=== PATIENT | female | born 1995 | race Caucasian/White ===

== ENCOUNTER 2016-07-03 17:21 | Emergency (ER) | payer BC ==
[~2016-07-03] VITALS: Ht 167.6 cm; Wt 104.1 kg
[~2016-07-03 17:21] MED LIST: BCPILLS PO; PRLSR20 PO
[2016-07-03 17:32] VITALS: TEMP 36.6; Ht 167.6 cm; Wt 104.1 kg
[2016-07-03] MEDS ORDERED: SODIUM CHLORIDE 0.9% 1000ML 1,000 ML IV STA (17:49)
[2016-07-03] MEDS ORDERED: ONDANSETRON INJ 2 MG/ML 2 ML VIAL IV STA (17:49)
[2016-07-03] MEDS ORDERED: PROM25TA16 PO (18:02)
[2016-07-03 18:07] LABS: BASO % 0.3 %; BASO ABS # 0.03 K/uL (0-0.2); COMPLETE YES; EOS % 2.2 %; HEMATOCRIT 41.2 % (37-47); IG% 0.3 %; LYMPH % 23.5 %; LYMPH ABS # 2.05 K/uL (1.2-3.4); MEAN CELL VOLUME 79.5 fL (80-100); MEAN CORPUSCULAR HEMOGLOBIN 26.8 pg (25-34); MEAN CORPUSCULAR HGB CONC 33.7 g/dl (32-36); MEAN PLATELET VOLUME 9.2 fL (7.4-10.4); MONO % 6.5 %; NEUT % 67.2 %; PLATELET COUNT 220 K/uL (130-400); RED BLOOD COUNT 5.18 M/uL (4.2-5.4); WHITE BLOOD COUNT 8.72 K/uL (4.8-10.8)
[2016-07-03 18:23] LABS: URINE APPEARANCE CLEAR (CLEAR); URINE BILIRUBIN NEG (NEG); URINE COLOR YELLOW; URINE NITRITE NEG (NEG); UROBILINOGEN NEG (NEG); ZZUR CULT IF INDIC CLEAN CATCH NO
[2016-07-03 18:25] LABS: ALT/SGPT 318 U/L (12-78); BLOOD UREA NITROGEN 5 mg/dl (7-18); BUN/CREATININE RATIO 6.7 (10-20); C-REACTIVE PROTEIN < 0.29 mg/dl (0-0.29); CALCIUM 8.7 mg/dl (8.5-10.1); CARBON DIOXIDE 27 mmol/L (21-32); CHLORIDE 109 mmol/L (98-107); CREATININE 0.78 mg/dl (0.60-1.20); GLUCOSE 82 mg/dl (70-99); POTASSIUM 4.1 mmol/L (3.5-5.1); SODIUM 142 mmol/L (136-145)
[2016-07-03 18:27] LABS: MANUAL MICROSCOPIC REQUIRED? NO; REVIEW REQ? YES
[2016-07-03 18:34] LABS: ALB/GLOB RATIO 1.1 (0.9-2); ALKALINE PHOSPHATASE 72 U/L (45-117); AST/SGOT 133 U/L (15-37)
--- NOTE | 2016-07-03 18:56 | DIAGNOSTIC IMAGING REPORT ---
KUB CLINICAL HISTORY: Nausea and vomiting. FINDINGS: 3 AP supine abdominal radiographs are correlated with abdominal CT dated 03/05/2013. There is a nonobstructed abdominal bowel gas pattern noting mild to moderate colonic fecal retention. No evidence of intraperitoneal free air is seen on these supine views. There is no radiographic evidence of nephrolithiasis. A calcified phlebolith is observed in the left hemipelvis. The bony structures appear intact. IMPRESSION: Nonobstructed abdominal bowel gas pattern noting mild to moderate colonic fecal retention. Electronically signed by: Yang Scott M.D. 07/03/2016 6:55 PM Dictated Date/Time: 07/03/2016 6:54 PM
--- NOTE | 2016-07-03 19:54 | DIAGNOSTIC IMAGING REPORT ---
ULTRASOUND RIGHT UPPER QUADRANT ABDOMEN CLINICAL HISTORY: Right upper quadrant abdominal pain. COMPARISON STUDY: Abdominal CT dated 03/05/2013. TECHNIQUE: Real-time, grayscale, and color flow sonography of the right upper quadrant of the abdomen was performed. Images are reviewed in the transverse and longitudinal planes. FINDINGS: Liver: The liver is normal in size and echotexture. There is no intrahepatic biliary ductal dilatation. The main portal vein is patent. Gallbladder: The gallbladder is normal in appearance. No gallstones are identified. There is no gallbladder wall thickening or pericholecystic fluid. A sonographic Ervin's sign is reportedly absent. The common bile duct measures up to 0.3 cm in diameter. Pancreas: Visualized portions of the pancreatic head and body are normal in appearance. The splenic vein is patent. Right kidney: Survey images of the right kidney demonstrate normal size and echotexture. There is no hydronephrosis. Spleen: Spleen is mildly enlarged measuring 14.3 cm in length. Spleen is homogeneous in echotexture. Ascites: None. IMPRESSION: 1. No acute sonographic abnormality is identified. No gallstones are seen. 2. Mild splenomegaly. Electronically signed by: Yang Scott M.D. 07/03/2016 7:52 PM Dictated Date/Time: 07/03/2016 7:51 PM
[2016-07-03] MEDS ORDERED: ONDANSETRON HOME PACK 4MG OD TAB PO ONE (20:30)
[2016-07-03] MEDS ORDERED: ONDA4TAB10 SL (20:38)
--- NOTE | 2016-07-03 20:39 | EMERGENCY ROOM VISIT NOTE ---
History First contact with patient: 17:38 Chief Complaint: GI ASSESSMENT Stated Complaint: VOMITING, LOOSE STOOLS, STOMACH PAIN Nursing Triage Summary: Patient states "I have been sick for about 2 weeks now. I have seen my doctor and have had blood work taken. They said that my LFTs were elevated. I have had nausea, vomiting, yellow diarrhea, body aches, fevers and fatigue." History of Present Illness The patient is a 21 year old female who presents to the Emergency Department by private vehicle for evaluation of her vomiting, loose stools, and abdominal pain. She reports that for the past 1.5 weeks, she has had diarrhea as well as associated nausea. She saw her primary care provider last week and had blood work performed. Her liver enzymes were elevated. She had a subsequent follow- up appointment for repeat blood work as well. She has costal cultures orders which she has not provided sample for at this point. She has ultrasound order this week as well. She had resolved her diarrhea, but describes green stools recently. She had vomiting and worsening pain which prompted her visit to the emergency department today. The patient rates her current discomfort as a 6/ 10. She denies any fevers, chills, headaches, chest pain, palpitations, pleuritic pain, hematemesis, hematochezia, melena, hematuria, or dysuria. Review of Systems A complete 10-point Review of Systems was discussed with the patient, with pertinent positives and negatives listed in the History of Present Illness. All remaining Review of Systems questions can be considered negative unless otherwise specified. Social History Smoking Status: Never Smoker Smokeless Tobacco Use: No Alcohol Use: none Drug Use: none Marital Status: single Housing Status: lives with family Current/Historical Medications Scheduled PRN Ondasetron Odt (Zofran Odt), 1 TAB SL Q6 PRN for Nausea or Vomiting Promethazine HCl (Promethazine HCl), 25 MG PO BID PRN for Nausea or Vomiting Allergies Coded Allergies: No Known Allergies (Unverified , 07/03/16) Physical Exam Vital Signs Date Time Temp Pulse Resp B/P Pulse Ox O2 Delivery O2 Flow Rate FiO2 07/03/16 20:45 83 18 117/73 97 Room Air 07/03/16 20:13 90 18 121/65 98 Room Air 07/03/16 19:10 84 18 125/74 98 Room Air 07/03/16 18:10 88 125/75 86 133/81 95 116/82 07/03/16 17:32 36.6 98 16 129/99 97 Room Air Pain Rating (0-10): 6 Physical Exam VITAL SIGNS - Vital signs and nursing notes were reviewed. GENERAL - 21-year-old female appearing her stated age who is in no acute distress. Communicates well with provider and answers questions appropriately. LUNGS - Chest wall symmetric without accessory muscle use, intercostals retractions, or central cyanosis. Normal vesicular breath sounds CTA B/L. No wheezes, rales, or rhonchi appreciated. CARDIAC - RRR with S1/S2. No murmur, rubs, or gallops appreciated. ABDOMEN - Abdominal contour female and without pulsations or visible masses. BS normoactive all four quadrants. No tenderness to palpation appreciated throughout. No guarding. No Rebound Tenderness. Negative Rovsing's. Negative Ervin's. No palpable masses, hepatosplenomegaly, or ascites noted. EXTREMITIES - No clubbing or peripheral cyanosis. No pretibial edema present. +3 /5 radial and dorsalis pedis pulses palpated throughout. PSYCH - A&Ox3 and cooperates fully with examiner. Pt is very pleasant and interacts well with examiner. Medical Decision & Procedures ER Provider Diagnostic Interpretation: Radiological imaging and reports were reviewed by myself. Radiologist's Interpretation as follows: ULTRASOUND RIGHT UPPER QUADRANT ABDOMEN CLINICAL HISTORY: Right upper quadrant abdominal pain. COMPARISON STUDY: Abdominal CT dated 03/05/2013. TECHNIQUE: Real-time, grayscale, and color flow sonography of the right upper quadrant of the abdomen was performed. Images are reviewed in the transverse and longitudinal planes. FINDINGS: Liver: The liver is normal in size and echotexture. There is no intrahepatic biliary ductal dilatation. The main portal vein is patent. Gallbladder: The gallbladder is normal in appearance. No gallstones are identified. There is no gallbladder wall thickening or pericholecystic fluid. A sonographic Ervin's sign is reportedly absent. The common bile duct measures up to 0.3 cm in diameter. Pancreas: Visualized portions of the pancreatic head and body are normal in appearance. The splenic vein is patent. Right kidney: Survey images of the right kidney demonstrate normal size and echotexture. There is no hydronephrosis. Spleen: Spleen is mildly enlarged measuring 14.3 cm in length. Spleen is homogeneous in echotexture. Ascites: None. IMPRESSION: 1. No acute sonographic abnormality is identified. No gallstones are seen. 2. Mild splenomegaly. KUB CLINICAL HISTORY: Nausea and vomiting. FINDINGS: 3 AP supine abdominal radiographs are correlated with abdominal CT dated 03/05/2013. There is a nonobstructed abdominal bowel gas pattern noting mild to moderate colonic fecal retention. No evidence of intraperitoneal free air is seen on these supine views. There is no radiographic evidence of nephrolithiasis. A calcified phlebolith is observed in the left hemipelvis. The bony structures appear intact. IMPRESSION: Nonobstructed abdominal bowel gas pattern noting mild to moderate colonic fecal retention. Laboratory Results 07/03/16 17:58 Red Blood Count 5.18, Mean Corpuscular Volume 79.5, Mean Corpuscular Hemoglobin 26.8, Mean Corpuscular Hemoglobin Concent 33.7, Mean Platelet Volume 9.2, Neutrophils (%) (Auto) 67.2, Lymphocytes (%) (Auto) 23.5, Monocytes (%) (Auto) 6.5, Eosinophils (%) (Auto) 2.2, Basophils (%) (Auto) 0.3, Neutrophils # (Auto) 5.85, Lymphocytes # (Auto) 2.05, Monocytes # (Auto) 0.57, Eosinophils # (Auto) 0.19, Basophils # (Auto) 0.03 07/03/16 17:58 Test 07/03/16 17:58 07/03/16 18:01 White Blood Count 8.72 K/uL (4.8-10.8) Red Blood Count 5.18 M/uL (4.2-5.4) Hemoglobin 13.9 g/dL (12.0-16.0) Hematocrit 41.2 % (37-47) Mean Corpuscular Volume 79.5 fL (80-100) Mean Corpuscular Hemoglobin 26.8 pg (25-34) Mean Corpuscular Hemoglobin Concent 33.7 g/dl (32-36) Platelet Count 220 K/uL (130-400) Mean Platelet Volume 9.2 fL (7.4-10.4) Neutrophils (%) (Auto) 67.2 % Lymphocytes (%) (Auto) 23.5 % Monocytes (%) (Auto) 6.5 % Eosinophils (%) (Auto) 2.2 % Basophils (%) (Auto) 0.3 % Neutrophils # (Auto) 5.85 K/uL (1.4-6.5) Lymphocytes # (Auto) 2.05 K/uL (1.2-3.4) Monocytes # (Auto) 0.57 K/uL (0.11-0.59) Eosinophils # (Auto) 0.19 K/uL (0-0.5) Basophils # (Auto) 0.03 K/uL (0-0.2) RDW Standard Deviation 37.8 fL (36.4-46.3) RDW Coefficient of Variation 13.1 % (11.5-14.5) Immature Granulocyte % (Auto) 0.3 % Immature Granulocyte # (Auto) 0.03 K/uL (0.00-0.02) Erythrocyte Sedimentation Rate 3 mm/hr (0-21) Anion Gap 6.0 mmol/L (3-11) Est Creatinine Clear Calc Drug Dose 139.0 ml/min Estimated GFR () 126.0 Estimated GFR (Non- 108.7 BUN/Creatinine Ratio 6.7 (10-20) Calcium Level 8.7 mg/dl (8.5-10.1) Magnesium Level 2.0 mg/dl (1.8-2.4) Total Bilirubin 0.8 mg/dl (0.2-1) Aspartate Amino Transf (AST/SGOT) 133 U/L (15-37) Alanine Aminotransferase (ALT/SGPT) 318 U/L (12-78) Alkaline Phosphatase 72 U/L (45-117) C-Reactive Protein < 0.29 mg/dl (0-0.29) Total Protein 7.0 gm/dl (6.4-8.2) Albumin 3.7 gm/dl (3.4-5.0) Globulin 3.3 gm/dl (2.5-4.0) Albumin/Globulin Ratio 1.1 (0.9-2) Lipase 150 U/L (73-393) Thyroid Stimulating Hormone (TSH) 2.230 uIu/ml (0.300-4.500) Monoscreen POS (NEG) Urine Color YELLOW Urine Appearance CLEAR (CLEAR) Urine pH 7.0 (4.5-7.5) Urine Specific [place] 1.000 (1.000-1.030) Urine Protein NEG (NEG) Urine Glucose (UA) NEG (NEG) Urine Ketones NEG (NEG) Urine Occult Blood 3+ (NEG) Urine Nitrite NEG (NEG) Urine Bilirubin NEG (NEG) Urine Urobilinogen NEG (NEG) Urine Leukocyte Esterase NEG (NEG) Urine WBC (Auto) 0 /hpf (0-5) Urine RBC (Auto) 0-4 /hpf (0-4) Urine Hyaline Casts (Auto) 0 /lpf (0-5) Urine Epithelial Cells (Auto) 10-20 /lpf (0-5) Urine Bacteria (Auto) NEG (NEG) Urine Test NEG (NEG) Medications Administered Medications (Trade) Dose Ordered Sig/Rob Route Start Time Stop Time Status Last Admin Dose Admin Sodium Chloride (Nss 1000ml) 1,000 ml @ 999 mls/hr Q1H1M STAT IV 07/03/16 17:49 07/03/16 18:49 DC 07/03/16 18:07 999 MLS/HR Ondansetron HCl (Zofran Inj) 4 mg NOW STAT IV 07/03/16 17:49 07/03/16 17:53 DC 07/03/16 18:07 4 MG Ondansetron HCl (ZOFRAN ODT 4MG Home Pack) 1 homepack UD ONCE PO 07/03/16 20:30 07/03/16 20:31 DC 07/03/16 20:44 1 HOMEPACK ED Course Patient was seen and evaluated by myself. Labs were drawn, saline lock in place. The patient was hydrated with a 1000 mL normal saline bolus. She received 4 mg Zofran intravenously for nausea. KUB and color ultrasound were obtained. Laboratory results demonstrate no acute leukocytosis, worrisome anemia, or bandemia. The patient has no significant electrolyte abnormalities. Liver enzymes were mildly elevated. ESR and CRP are negative. Urinalysis does not state infection. Urine was negative. Ultrasound of the spleen is ordered. Ultrasounds were unremarkable. She did have some mild splenomegaly. Laboratory results and imaging studies were reviewed and the patient who acknowledges understanding. Patient has a follow-up appointment this week with her primary care provider. She was educated on typical concerns regarding mononucleosis infections. She was educated on worrisome symptoms for return visit to the emergency department. Patient discharged home afebrile and in good condition. Medical Decision Given the patient's presentation and stated complaints, I did elect to perform the above-mentioned workup. The patient presents today with ongoing plates of symptoms over the past 1.5 weeks. She has no fever. She has no leukocytosis. Her abdomen is soft and nontender to palpation. She's had nausea and vomiting as well as generalized malaise. She had elevation of her liver enzymes. Because of this, I did order a Monospot which is found a positive. Her liver enzymes were mildly elevated. CT the spleen demonstrates no significant concerning splenomegaly at this point. Patient was hydrated and received Zofran and felt much better. She'll continue to follow up with her primary care provider from today's visit. She will return for any changing or worsening symptoms. Patient discharged home afebrile and in good condition. In the evaluation and treatments patient, the following differential diagnoses were considered: Gastritis, gastritis, duodenitis, cholecystitis, ascending cholangitis, choledocholithiasis, viral illness, C. difficile, amongst others. Impression Primary Impression: Mononucleosis Additional Impressions: Nausea & vomiting Loose stools Departure Information Dispostion Home / Self-Care Condition GOOD Prescriptions Ondasetron Odt (ZOFRAN ODT) 4 Mg Tab 1 TAB SL Q6 Y for Nausea or Vomiting for 5 Days, #20 TAB Prov: Bret Weeks PA-C 07/03/16 Referrals Magalys Tai PA-C (PCP) Patient Instructions ED Mononucleosis, [facility] Additional Instructions You've been seen in the emergency department today for your ongoing symptoms. You have been diagnosed with mononucleosis. Please refrain from any Tylenol-based products. Drink plenty of fluids and stay well hydrated. You have been prescribed Zofran to be used for any nausea or vomiting. Take as prescribed. Keep your follow-up appointment with your primary care provider as scheduled. Return for any changing or worsening symptoms. Problem Qualifiers Additional Impressions: Nausea & vomiting Vomiting type: unspecified Vomiting Intractability: unspecified Qualified Codes: R11.2 - Nausea with vomiting, unspecified
[2016-07-03 20:45] VITALS: BP 117/73; PULSE 83; O2SAT 97
== END 2016-07-03 20:47 | disposition home or self-care (01) ==
LOC: C.EDB 17:22 → C.EDC 20:47
DX: B27.90 Infectious mononucleosis, unspecified without complication (principal); R11.2 Nausea with vomiting, unspecified; R19.7 Diarrhea, unspecified; R16.1 Splenomegaly, not elsewhere classified

== ENCOUNTER → 2016-09-12 | Outpatient (CLI) | payer BC ==
[~2016-09-12] MED LIST changes: +ACET-1311 PO; -BCPILLS PO; +PRENTAB26 PO; -PRLSR20 PO; +PROM25TA16 PO
== END | disposition home or self-care (01) ==
LOC: C.LAB1850 08:28
PROVIDERS: ATTEND Obstetrics & Gynecology
DX: Z32.00 Encounter for pregnancy test, result unknown (principal)

== ENCOUNTER → 2016-09-14 | Outpatient (CLI) | payer BC | END | disposition home or self-care (01) | LOC: C.LAB1850 07:48 | PROVIDERS: ATTEND Obstetrics & Gynecology | DX: O09.00 Supervision of pregnancy with history of infertility, unspecified trimester (principal) ==

== ENCOUNTER → 2016-10-04 | Outpatient (CLI) | payer BC ==
[2016-10-04 12:08] LABS: BASO % 0.1 %; BASO ABS # 0.01 K/uL (0-0.2); COMPLETE YES; EOS % 0.5 %; HEMATOCRIT 36.2 % (37-47); IG% 0.2 %; LYMPH % 25.7 %; LYMPH ABS # 2.48 K/uL (1.2-3.4); MEAN CELL VOLUME 80.1 fL (80-100); MEAN CORPUSCULAR HEMOGLOBIN 26.5 pg (25-34); MEAN CORPUSCULAR HGB CONC 33.1 g/dl (32-36); MEAN PLATELET VOLUME 9.1 fL (7.4-10.4); NEUT % 67.5 %; PLATELET COUNT 227 K/uL (130-400); RED BLOOD COUNT 4.52 M/uL (4.2-5.4); WHITE BLOOD COUNT 9.66 K/uL (4.8-10.8)
[2016-10-04 12:17] LABS: URINE APPEARANCE CLEAR (CLEAR); URINE BILIRUBIN NEG (NEG); URINE COLOR DK YELLOW; URINE NITRITE NEG (NEG); URINE PH 5.5 (4.5-7.5); URINE SPECIFIC GRAVITY 1.024 (1.000-1.030); UROBILINOGEN NEG (NEG)
[2016-10-04 12:36] LABS: MANUAL MICROSCOPIC REQUIRED? NO; REVIEW REQ? NO
[2016-10-05 21:08] LABS: CHLAMYDIA TRACH RNA*** NOT DETECTED (NOT DETECTED); GC (NEIS GONORRHOEAE)RNA** NOT DETECTED (NOT DETECTED)
== END | disposition home or self-care (01) ==
LOC: C.LAB1850 10:02
PROVIDERS: ATTEND Obstetrics & Gynecology
DX: O09.00 Supervision of pregnancy with history of infertility, unspecified trimester (principal)

== ENCOUNTER → 2016-10-04 | Outpatient (CLI) | payer BC | END | disposition home or self-care (01) | LOC: C.PAPS 08:31 | PROVIDERS: ATTEND Obstetrics & Gynecology | DX: Z12.4 Encounter for screening for malignant neoplasm of cervix (principal) ==

== ENCOUNTER 2016-10-28 20:47 | Emergency (ER) | payer BC ==
[~2016-10-28] VITALS: Ht 167.6 cm; Wt 102.5 kg
[~2016-10-28 20:47] MED LIST changes: -ACET-1311 PO; -PRENTAB26 PO
[2016-10-28 20:48] VITALS: TEMP 36.7; Ht 167.6 cm; Wt 102.5 kg
[2016-10-28] MEDS ORDERED: MoRPHine SULFATE 4 MG/ML 1 ML CARP\\VIAL IV STA ×2 (21:10→22:26)
[2016-10-28] MEDS ORDERED: SODIUM CHLORIDE 0.9% 500ML 500 ML IV STA (21:10)
[2016-10-28] MEDS ORDERED: ACETAMINOPHEN 500 MG TAB PO STA (21:10)
[2016-10-28] MEDS ORDERED: ACET-1311 PO (21:25)
[2016-10-28] MEDS ORDERED: PRENTAB26 PO (21:25)
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
[2016-10-28 21:48] LABS: URINE APPEARANCE CLEAR (CLEAR); URINE BILIRUBIN NEG (NEG); URINE COLOR YELLOW; URINE EPITHELIAL CELL AUTO 20-30 /lpf (0-5); URINE NITRITE NEG (NEG); URINE SPECIFIC GRAVITY 1.016 (1.000-1.030); UROBILINOGEN NEG (NEG); ZZUR CULT IF INDIC CLEAN CATCH NO
[2016-10-28 21:50] LABS: MANUAL MICROSCOPIC REQUIRED? NO; REVIEW REQ? NO
[2016-10-28 21:53] LABS: HEMATOCRIT 39.4 % (37-47); MEAN CELL VOLUME 80.4 fL (80-100); MEAN CORPUSCULAR HEMOGLOBIN 27.3 pg (25-34); MEAN PLATELET VOLUME 9.1 fL (7.4-10.4); PLATELET COUNT 195 K/uL (130-400); WHITE BLOOD COUNT 14.88 K/uL (4.8-10.8)
[2016-10-28 22:09] LABS: CALCIUM 9.1 mg/dl (8.5-10.1); CREATININE 0.83 mg/dl (0.60-1.20); POTASSIUM 3.8 mmol/L (3.5-5.1)
--- NOTE | 2016-10-29 01:23 | EMERGENCY ROOM VISIT NOTE ---
ED Visit Note First contact with patient: 22:43 This is a 21-year-old male initially seen by Dr. Ybarra who felt that she likely had a miscarriage. The patient was signed out to me pending ultrasound of the pelvis. The ultrasound did demonstrate what appears to be a miscarriage. I did inform the patient and offer my condolences. I did consult the display decorator field applications specialist for management knee who came and evaluated the patient. She was able to remove products of conception from the vaginal vault and treated her with Methergine. The patient was discharged and will follow up in the office.
[2016-10-29] MEDS ORDERED: METHYLERGONOVINE MALEATE 0.2 MG TAB PO STA (01:24)
[2016-10-29 01:37] VITALS: BP 134/80; PULSE 90; O2SAT 97
--- NOTE | 2016-10-29 02:13 | Medical Consult ---
Consultation Date of Consultation: Oct 29, 2016. Attending Physician: Dr Young Reason for Consultation: vaginal bleeding, spontaneous History of Present Illness 21yo @ 11w3d with confirmed IUP by previous office ultrasound who presented to the ER with low pelvic cramping. She then began to bleed heavily. Ultrasound in the ER showed no viable IUP. complicated by PCOS, conception by [employer]. Past Medical/Surgical History Medical Problems: (1) Loose stools Status: Acute (2) Mononucleosis Status: Acute (3) Nausea & vomiting Status: Acute (4) Status: Acute (5) Vaginal bleeding Status: Acute Family History noncontributory Social History Smoking Status: Never Smoker Drug Use: none Marital Status: single Housing Status: lives with family Allergies Coded Allergies: No Known Allergies (Unverified , 07/03/16) Review of Systems Constitutional: No problem reported Eyes: No problem reported ENT: No problem reported Respiratory: No problem reported Cardiovascular: No problem reported Abdomen: No problem reported Musculoskeletal: No problem reported Genitourinary - Female: + vaginal bleeding Neurologic: No problem reported Psychiatric: No problem reported Endocrine: No problem reported Hematologic / Lymphatic: No problem reported Integumentary: No problem reported Allergic / Immunologic: No problem reported Physical Exam Date Time Temp Pulse Resp B/P (MAP) Pulse Ox O2 Delivery O2 Flow Rate FiO2 10/29/16 01:37 90 16 134/80 97 Room Air 10/29/16 01:03 95 16 143/82 97 Room Air 10/28/16 23:02 98 16 134/87 97 Room Air 10/28/16 20:48 36.7 104 22 142/102 95 Room Air General Appearance: no apparent distress Respiratory/Chest: no respiratory distress Cardiovascular: regular rate, rhythm Abdomen/GI: non tender, soft Genitourinary - Female: + pertinent finding (Blood and products of conception in vaginal vault. Cervix dilated 2cm) Extremities/Musculoskelatal: normal inspection Neurologic/Psych: alert, oriented x 3 Skin: normal color Laboratory Results Last 24 Hours Test 10/28/16 21:40 White Blood Count 14.88 K/uL Red Blood Count 4.90 M/uL Hemoglobin 13.4 g/dL Hematocrit 39.4 % Mean Corpuscular Volume 80.4 fL Mean Corpuscular Hemoglobin 27.3 pg Mean Corpuscular Hemoglobin Concent 34.0 g/dl RDW Standard Deviation 39.1 fL RDW Coefficient of Variation 13.3 % Platelet Count 195 K/uL Mean Platelet Volume 9.1 fL Sodium Level 137 mmol/L Potassium Level 3.8 mmol/L Chloride Level 103 mmol/L Carbon Dioxide Level 25 mmol/L Anion Gap 9.0 mmol/L Blood Urea Nitrogen 8 mg/dl Creatinine 0.83 mg/dl Est Creatinine Clear Calc Drug Dose 129.6 ml/min Estimated GFR () 116.8 Estimated GFR (Non- 100.8 BUN/Creatinine Ratio 10.0 Random Glucose 97 mg/dl Calcium Level 9.1 mg/dl Human Chorionic Gonadotropin, Quant 3377 mIU/mL Assessment & Plan Complete Products of conception were gently removed from vaginal vault. Sent to pathology for gross evaluation. Bleeding has slowed to slight trickle after removal of POC. Will give patient 0.2mg methergine and OK to discharge to home from COMMISSIONS ANALYST perspective.
--- NOTE | 2016-10-29 06:50 | DIAGNOSTIC IMAGING REPORT ---
ULTRASOUND CLINICAL HISTORY: 11 weeks with vaginal bleeding and cramping. COMPARISON STUDY: No previous studies for comparison. TECHNIQUE: Transabdominal transvaginal sonography of the fetus was performed. FINDINGS: The uterus measures 10.2 x 4.7 x 5.6 cm. There is thickening and debris within the endometrium of the lower uterine segment which measures approximately 2.4 cm in thickness. No intrauterine gestational sac was noted. Note was made of a 6 mm echogenic focus within the endometrium. The right ovary measured 2.6 x 2.2 x 3.3 cm. The left ovary measured 3.8 x 2.7 x 3.6 cm. A 2.4 cm left ovarian lesion suggests a corpus luteal cyst. There is a right ovarian cyst. Color flow is identified within each ovary. IMPRESSION: 1. No definite intrauterine gestational sac identified. Thickened, heterogeneous endometrium of the lower uterine segment, measuring 2.4 cm in thickness. Associated 6 mm echogenic focus. The findings could reflect retained products of conception or hemorrhage and may be on the basis of a spontaneous . Clinical follow-up, including serial beta hCG levels, is recommended. 2. 2.4 cm left ovarian lesion which favors a corpus luteal cyst. Ectopic is considered less likely. Electronically signed by: Earl Jaramillo M.D. 10/29/2016 6:49 AM Dictated Date/Time: 10/29/2016 6:44 AM
== END 2016-10-29 01:41 | disposition home or self-care (01) ==
LOC: C.EDB 20:47 → C.EDC 10-29 01:41
DX: O03.9 Complete or unspecified spontaneous abortion without complication (principal)

== ENCOUNTER → 2016-11-08 | Outpatient (CLI) | payer BC ==
[~2016-11-08] MED LIST changes: +ACET-1311 PO; +PRENTAB26 PO; -PROM25TA16 PO
== END | disposition home or self-care (01) ==
LOC: C.LAB1850 14:15
PROVIDERS: ATTEND Obstetrics & Gynecology
DX: O02.1 Missed abortion (principal); Z3A.00 Weeks of gestation of pregnancy not specified

== ENCOUNTER → 2016-11-17 | Outpatient (CLI) | payer BC | END | disposition home or self-care (01) | LOC: C.LAB 07:58 | PROVIDERS: ATTEND Obstetrics & Gynecology | DX: O02.1 Missed abortion (principal) ==

== ENCOUNTER → 2016-12-03 | Outpatient (CLI) | payer BC ==
[2016-12-03 12:46] LABS: THYROID STIMULATING HORMONE 1.6 uIu/ml (0.300-4.500)
== END | disposition home or self-care (01) ==
LOC: C.LAB1850 09:41
PROVIDERS: ATTEND Obstetrics & Gynecology
DX: Z31.41 Encounter for fertility testing (principal); E28.2 Polycystic ovarian syndrome; N91.5 Oligomenorrhea, unspecified

== ENCOUNTER → 2017-03-04 | Outpatient (CLI) | payer BC | END | disposition home or self-care (01) | LOC: C.LAB1850 11:12 | PROVIDERS: ATTEND Obstetrics & Gynecology | DX: O09.00 Supervision of pregnancy with history of infertility, unspecified trimester (principal) ==

== ENCOUNTER → 2017-04-08 | Outpatient (CLI) | payer BC ==
[2017-04-08 14:45] LABS: BASO % 0.1 %; BASO ABS # 0.01 K/uL (0-0.2); COMPLETE YES; EOS % 1.6 %; HEMATOCRIT 34.8 % (37-47); IG% 0.2 %; LYMPH % 23.2 %; LYMPH ABS # 2.12 K/uL (1.2-3.4); MEAN CELL VOLUME 80.4 fL (80-100); MEAN CORPUSCULAR HEMOGLOBIN 27.7 pg (25-34); MEAN CORPUSCULAR HGB CONC 34.5 g/dl (32-36); MEAN PLATELET VOLUME 9.6 fL (7.4-10.4); MONO % 7.2 %; NEUT % 67.7 %; PLATELET COUNT 211 K/uL (130-400); RED BLOOD COUNT 4.33 M/uL (4.2-5.4); WHITE BLOOD COUNT 9.15 K/uL (4.8-10.8)
[2017-04-08 16:47] LABS: URINE APPEARANCE CLEAR (CLEAR); URINE BILIRUBIN NEG (NEG); URINE COLOR YELLOW; URINE NITRITE NEG (NEG); URINE SPECIFIC GRAVITY 1.013 (1.000-1.030); UROBILINOGEN NEG (NEG)
[2017-04-08 16:59] LABS: MANUAL MICROSCOPIC REQUIRED? NO; REVIEW REQ? NO
== END | disposition home or self-care (01) ==
LOC: C.LAB1850 13:06
PROVIDERS: ATTEND Obstetrics & Gynecology
DX: Z34.81 Encounter for supervision of other normal pregnancy, first trimester (principal)

== ENCOUNTER → 2017-04-08 | Outpatient (CLI) | payer BC ==
[2017-04-11 01:27] LABS: CHLAMYDIA TRACH RNA*** NOT DETECTED (NOT DETECTED); GC (NEIS GONORRHOEAE)RNA** NOT DETECTED (NOT DETECTED)
== END | disposition home or self-care (01) ==
LOC: C.LABSPEC 15:56
PROVIDERS: ATTEND Obstetrics & Gynecology
DX: Z34.81 Encounter for supervision of other normal pregnancy, first trimester (principal)

== ENCOUNTER → 2017-09-02 | Outpatient (CLI) | payer BC ==
[2017-09-02 10:14] LABS: HEMATOCRIT 31.7 % (37-47); HEMOGLOBIN 10.8 g/dL (12.0-16.0)
== END | disposition home or self-care (01) ==
LOC: C.LAB1850 09:31
PROVIDERS: ATTEND Obstetrics & Gynecology
DX: Z34.03 Encounter for supervision of normal first pregnancy, third trimester (principal)

== ENCOUNTER 2017-11-09 03:01 | Inpatient (IN) | payer BC ==
[~2017-11-09] VITALS: Ht 167.6 cm; Wt 98.4 kg
[2017-11-09] MEDS ORDERED: LACTATED RINGER'S 1000ML 1,000 ML IV PRN (03:40)
[2017-11-09] MEDS ORDERED: PENICILLIN G POTASSIUM IV 6 MU in DEXTROSE 5% 250ML 250 ML IV ONE (03:45)
[2017-11-09] MEDS ORDERED: EpHEDrine SULFATE INJ 50 MG/ML AMP ONE (03:48)
[2017-11-09] MEDS ORDERED: BUPIVACAINE 0.25% 30 ML VIAL ONE (03:48)
[2017-11-09] MEDS ORDERED: FENTANYL CITRATE INJ 50 MCG/1 ML 2 ML VIAL ONE (03:49)
[2017-11-09] MEDS ORDERED: FENTANYL 2MCG/ML ROPIV 1.25MG/ML 100ML BAG ONE (03:49)
[2017-11-09] MEDS ORDERED: DOCU-94 PO (03:55)
[2017-11-09 03:57] VITALS: Ht 167.6 cm; Wt 98.4 kg
[2017-11-09] MEDS: LACTATED RINGER'S 1000ML 1,000 ML IV SCH ×2 (04:07→16:36)
[2017-11-09 04:32] LABS: HEMATOCRIT 36.6 % (37-47); HEMOGLOBIN 12.3 g/dL (12.0-16.0); MEAN CELL VOLUME 82.6 fL (80-100); MEAN CORPUSCULAR HEMOGLOBIN 27.8 pg (25-34); MEAN CORPUSCULAR HGB CONC 33.6 g/dl (32-36); MEAN PLATELET VOLUME 10.9 fL (7.4-10.4); PLATELET COUNT 211 K/uL (130-400); RED CELL DISTRIBUTION WIDTH CV 12.9 % (11.5-14.5); RED CELL DISTRIBUTION WIDTH SD 38.8 fL (36.4-46.3)
[2017-11-09] MEDS ORDERED: LACTATED RINGER'S 1000ML 500 ML IV PRN ×2 (05:16→07:04)
[2017-11-09] MEDS ORDERED: NALOXONE HCL INJ 1 MG in SODIUM CHLORIDE 0.9% 1000ML 1,000 ML IV PRN (05:16)
[2017-11-09] MEDS ORDERED: DiphenhydrAMINE HCL 50 MG/ML VIAL IV PRN (05:30)
[2017-11-09] MEDS ORDERED: NALBUPHINE HCL INJ 10 MG/ML 10ML VIAL IV PRN (05:30)
[2017-11-09] MEDS ORDERED: EpHEDrine SULFATE INJ 50 MG/ML AMP IV PRN (05:30)
[2017-11-09] MEDS ORDERED: NALOXONE HCL INJ 0.4 MG/1 ML VIAL/CARP IV PRN (05:30)
[2017-11-09] MEDS: FENTANYL 2MCG/ML ROPIV 1.25MG/ML 100ML BAG EPI PRN ×2 (06:48→10:38)
[2017-11-09] MEDS: OXYTOCIN 30 UNITS/500ML NSS IV PRN ×2 (07:32→13:28)
[2017-11-09] MEDS: PENICILLIN G POTASSIUM IV 3 MU in DEXTROSE 5% 100ML 100 ML IV PRN ×2 (07:49→11:22)
[2017-11-09] MEDS ORDERED: BENZOCAINE 20% AER SPR 82.5 GM CAN EXT PRN (13:45)
[2017-11-09] MEDS ORDERED: OXYTOCIN 30 UNITS/500ML NSS IV PRN (13:45)
[2017-11-09] MEDS ORDERED: ACETAMINOPHEN 325 MG TAB PO PRN (13:45)
[2017-11-09] MEDS ORDERED: SUPERCREAM 0.870 % 15GM JAR EXT PRN (13:45)
[2017-11-09] MEDS ORDERED: LANOLIN OINT EXT PRN (13:45)
[2017-11-09] MEDS ORDERED: HYDROCORTISONE ACETATE 25 MG SUPP PR PRN (13:45)
--- NOTE | 2017-11-09 13:57 | Vaginal Delivery Summary ---
Vaginal Delivery Summary Predelivery diagnoses: 1. 22-year-old 010 39 weeks 5 days 2. Group B strep positive 3. GDM A1 Postdelivery diagnoses: Same plus vaginal hematoma Procedure: Spontaneous vaginal delivery, repair of second-degree perineal laceration, insertion of Bakri balloon into the vagina Complications: Vaginal hematoma Findings: Viable male , Apgars 8 and 9, left vaginal hematoma Estimated blood loss: 600 mL Description of delivery: Patient progressed to complete, then labored down until she felt the urge to push. She then pushed, and spontaneously vaginally delivered a viable male from the cephalic presentation. Head delivered in the left occiput anterior position with a compound left arm, the left arm was delivered, then the anterior shoulder delivered, then the body. The baby was placed on mother's abdomen, a spontaneous cry was heard, delayed cord clamping was employed, and the cord was doubly clamped and cut after 1 minute. Cord blood was obtained, the placenta was then delivered spontaneously intact with a three-vessel cord. The uterus and vagina were swept of all clots and debris, the cervix vagina and perineum were inspected and a second-degree perineal laceration was repaired in standard fashion with 3-0 Vicryl. At this time, my inspection of the vagina revealed an expanding left vaginal hematoma. I attempted to put pressure on this, and it burst with bright red bleeding. I placed a [id number] suture in an attempt to control the bleeding, but it continued oozing. I then held my hand in the vagina using direct pressure, for at least 5 minutes, and the bleeding subsided. With examination using right angle speculums, there did not appear to be a pumping bleeder, rather oozing from everywhere. Therefore, I felt that direct pressure was the best way to obtain hemostasis. I placed the Bakri balloon in the vagina against the vaginal wall, and filled this to 500 cc of sterile saline. This seems to obtain excellent hemostasis, with minimal bleeding in the tubing. I also placed a Ren catheter in and a large amount of urine was emptied from the bladder. Will watch patient's bleeding closely, will obtain stat CBC to evaluate current hemoglobin.
[2017-11-09 14:13] LABS: HEMATOCRIT 33.7 % (37-47); HEMOGLOBIN 11.5 g/dL (12.0-16.0); MEAN CELL VOLUME 81.6 fL (80-100); MEAN CORPUSCULAR HEMOGLOBIN 27.8 pg (25-34); MEAN PLATELET VOLUME 10.7 fL (7.4-10.4); PLATELET COUNT 188 K/uL (130-400); RED CELL DISTRIBUTION WIDTH CV 12.8 % (11.5-14.5); RED CELL DISTRIBUTION WIDTH SD 37.7 fL (36.4-46.3); WHITE BLOOD COUNT 13.25 K/uL (4.8-10.8)
[2017-11-09 14:23] LABS: MEAN CORPUSCULAR HGB CONC 34.1 g/dl (32-36)
--- NOTE | 2017-11-09 15:46 | Progress Note ---
Progress Note Date of Service Nov 09, 2017. Progress Note Labor and delivery note I have evaluated the patient multiple times since her delivery. Her vital signs have remained stable throughout. The Bakri balloon has expressed a total of 50 cc of blood, collected in the bag since delivery. Ren catheter shows good urine output. There is scant vaginal bleeding on the paula-pad. Uterus is firm, deviated to the right, this has been the case since delivery. Abdomen is soft, nontender, nondistended. Patient is awake, talking, breast-feeding. CBC performed just after delivery revealed hemoglobin 11.5 (down from 12.3 on admission), hematocrit 33.7, platelets 188. We will continue to monitor bleeding and vitals closely, repeat labs in 6 hours.
[2017-11-09] MEDS ORDERED: LACTATED RINGER'S 1000ML 1,000 ML IV SCH (16:22)
[2017-11-09] MEDS ORDERED: OPTIRAY 320 IV PRN (16:30)
--- NOTE | 2017-11-09 17:18 | DIAGNOSTIC IMAGING REPORT ---
ABDOMEN AND PELVIS CT WITH IV CONTRAST CT DOSE: 979.46 mGy.cm HISTORY: Acute vaginal bleeding with recent vaginal delivery vaginal hematoma after delivery (bakri balloon in vagina) TECHNIQUE: Multiaxial CT images of the abdomen and pelvis were performed following the use of intravenous contrast. A dose lowering technique was utilized adhering to the principles of ALARA. COMPARISON STUDY: CT abdomen and pelvis 03/05/2013. FINDINGS: Imaged lung bases are generally clear. No pneumatosis or pneumoperitoneum. Imaged inferior cardiac chambers are unremarkable. Mild distention of the gallbladder. Liver, pancreas and adrenal glands are unremarkable. The spleen is mildly enlarged, 15.4 cm. Mild symmetric bilateral hydroureteronephrosis without obstructing calculus or lesion identified. Ren catheter is noted in the bladder lumen which demonstrates wall thickening with nondependent intraluminal air. Enlarged post gravid appearance of the uterus with endometrial fluid/hematoma. There is a large balloon device noted vaginal canal. No large vaginal or extra vaginal hematoma identified. There is mild free pelvic fluid with mild perirectal stranding. No retroperitoneal or large intrapelvic hematoma identified. The aorta and IVC appear unremarkable. Portal vein is within normal limits. Dilation of the bilateral gonadal veins, likely physiologic. Air-fluid levels are noted within small bowel of the left mid and lower abdomen, likely physiologic or possibly reflecting mild ileus. No bowel obstruction. Appendix not definitively seen. No secondary signs to suggest acute appendicitis. Breast parenchyma appears unremarkable. Mild subcutaneous edema about the periumbilical tissues. Epidural catheter is noted with distal tip within the left anterolateral epidural space at the L2-L3 level. Air within the epidural space and paraspinal tissues likely expected postprocedural finding. Bones appear intact. Osteitis condensans ilii. IMPRESSION: 1. Enlarged post gravid appearance of the uterus with fluid/hemorrhage noted within the endometrial canal. Additionally, there is a balloon within the vagina without large vaginal or extrauterine hematoma identified. No retroperitoneal hemorrhage. 2. Mild free pelvic fluid is likely physiologic. 3. Symmetric mild bilateral hydroureteronephrosis is also likely secondary to physiologic changes related to without obstructing calculus or lesion identified. 4. Epidural catheter is noted at the L2-L3 level. Electronically signed by: Michael Nelson M.D. 11/09/2017 5:17 PM Dictated Date/Time: 11/09/2017 5:07 PM
--- NOTE | 2017-11-09 17:43 | Progress Note ---
Progress Note Date of Service Nov 09, 2017. Progress Note Patient is feeling well, remains hemodynamically stable. Bakri balloon remains in place, 100cc total output since delivery. Urine output remains excellent through meyers catheter. CT scan was performed to r/o pelvic or expanding vaginal wall hematoma, CT is negative. Patient with elevated temp - 99.6. Due to bakri balloon placement, will give 24h abx as prophylaxis - 1g ancef ordered Q8h x 24h. Will recheck H/H at 8pm tonight.
[2017-11-09] MEDS ORDERED: CEFAZOLIN IV 1,000 MG in DEXTROSE 5% 50ML 50 ML IV SCH (18:00)
[2017-11-09] MEDS: CEFAZOLIN IV 1,000 MG in SYRINGE 0 ML IV SCH (18:53)
--- NOTE | 2017-11-09 19:00 | Anesthesia Procedure Note ---
Anesthesia Epidural Removal Nt Date & Time Nov 09, 2017 at 18:59 Vital Signs Pain Intensity: 4.0 Notes Mental Status: alert / awake / arousable, participated in evaluation Nausea / Vomiting: adequately controlled Pain: adequately controlled Airway Patency, RR, SpO2: stable & adequate BP & HR: stable & adequate Hydration State: stable & adequate Neuraxial Anesthesia: was administered, sensory block is resolving, sensory block is resolved Anesthetic Complications: no major complications apparent, pt satisfied with anesthetic care Epidural: removed without complications, with tip intact
[2017-11-09 19:52] LABS: HEMOGLOBIN 10.8 g/dL (12.0-16.0)
[2017-11-09] MEDS: DOCUSATE SODIUM 100 MG CAP PO SCH (20:26)
[2017-11-09] MEDS: IBUPROFEN 600 MG TAB PO PRN (20:27)
[2017-11-10] MEDS: OXYCODONE/ACETAMINOPHEN 5-325 TAB PO PRN ×4 (00:14→23:47)
[2017-11-10] MEDS: IBUPROFEN 600 MG TAB PO PRN ×3 (03:11→23:47)
[2017-11-10] MEDS: CEFAZOLIN IV 1,000 MG in SYRINGE 0 ML IV SCH ×2 (03:12→10:24)
[2017-11-10 06:57] LABS: HEMATOCRIT 28.3 % (37-47); HEMOGLOBIN 9.7 g/dL (12.0-16.0)
[2017-11-10] MEDS: FERROUS SULFATE 325 MG TAB PO SCH (08:02)
[2017-11-10] MEDS: DOCUSATE SODIUM 100 MG CAP PO SCH ×2 (08:03→19:48)
--- NOTE | 2017-11-10 09:24 | Progress Note ---
Subjective Nov 10, 2017. Subjective conversation w/ patient, physical exam Ambulation: limited ambulation Voiding: meyers catheter in place Passing Gas: Yes Diet Tolerance: Regular Diet Lochia: Moderate Feeding Type: Breast Feeding Pain: controlled Review of Systems Constitutional: No problem reported Respiratory: No problem reported Cardiac: No problem reported Breast: No problem reported Abdomen: No problem reported Female : No problem reported Objective Physical Exam General Appearance: WELL-APPEARING, NO APPARENT DISTRESS Respiratory/Chest: no respiratory distress Cardiovascular: regular rate, rhythm Abdomen: non tender, soft Fundus: Firm Extremities: normal inspection (SCDs in place) Laboratory Results Last 24 Hours Test 11/09/17 13:53 11/09/17 19:37 11/10/17 06:24 White Blood Count 13.25 K/uL Red Blood Count 4.13 M/uL Hemoglobin 11.5 g/dL 10.8 g/dL 9.7 g/dL Hematocrit 33.7 % 32.0 % 28.3 % Mean Corpuscular Volume 81.6 fL Mean Corpuscular Hemoglobin 27.8 pg Mean Corpuscular Hemoglobin Concent 34.1 g/dl RDW Standard Deviation 37.7 fL RDW Coefficient of Variation 12.8 % Platelet Count 188 K/uL Mean Platelet Volume 10.7 fL Assessment and Plan Problem List Medical Problems: (1) Loose stools Status: Acute (2) Mononucleosis Status: Acute (3) Nausea & vomiting Status: Acute (4) Status: Acute (5) Vaginal bleeding Status: Acute Post- Day#: 1 Continue Routine Care: Stable. Scant lochia. About 360cc total out from bakri balloon since delivery - I suspect this is likely normal lochia. Vitals are stable and she is feeling well. 100cc removed (of 500cc total) from Bakri - will plan to watch for about an hour , and remove more if stable. Labial swelling - will continue use of ice packs, pain control.
--- NOTE | 2017-11-10 10:19 | Progress Note ---
Progress Note Date of Service Nov 10, 2017. Progress Note 100cc removed from Bakri balloon, scant bleeding. 300cc remains in balloon. Will continue to monitor.
--- NOTE | 2017-11-10 13:44 | Progress Note ---
Progress Note Date of Service Nov 10, 2017. Progress Note Bakri balloon was fully deflated 1 hour ago. No vaginal bleeding, scant blood in bakri bag. At this time, balloon gently removed from vagina and meyers also removed. On digital exam, no palpable vaginal hematoma. There remains a large left labial hematoma/swelling - using ice packs and Tucks pads for this. Discussed with patient that we will continue to monitor this, continue current treatments and pain medication (motrin/percocet) as needed. Will recheck H/H this evening and again in AM.
[2017-11-10 15:00] VITALS: BP 120/82; PULSE 85; TEMP 36.8
[2017-11-10 15:50] VITALS: BP 138/87; PULSE 93; TEMP 36.6
[2017-11-10 18:26] LABS: HEMATOCRIT 30.3 % (37-47); HEMOGLOBIN 9.9 g/dL (12.0-16.0)
[2017-11-10 19:50] VITALS: BP 138/88; PULSE 91; TEMP 37
[2017-11-10] MEDS ORDERED: BISACODYL 5 MG TABEC PO SCH (20:00)
[2017-11-11 00:50] VITALS: BP 117/77; PULSE 88; TEMP 36.9
[2017-11-11 06:38] LABS: HEMATOCRIT 29.6 % (37-47); HEMOGLOBIN 10.1 g/dL (12.0-16.0)
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
--- NOTE | 2017-11-11 06:53 | Discharge Instructions ---
Discharge Instructions Date of Service Nov 11, 2017. Admission Reason for Admission: Diet Controlled Gdm In Third Trimester Discharge Discharge Diagnosis / Problem: standard vaginal delivery Discharge Goals Goal(s): Routine recovery after delivery Medications Continue Dispensed Medications: supercream, dermaplast, tucks, lansinoh Activity Recommendations Activity Limitations: per Instructions/Follow-up section . Instructions / Follow-Up Instructions / Follow-Up ACTIVITY RECOMMENDATIONS: * Gradual return to full activity over the next 2-3 weeks. * No lifting - nothing heavier than baby over the next 2-3 weeks. * Do not engage in vigorous exercise, sexual activity or sports until cleared by your physician. * Do not drive or operate any motorized equipment until cleared by your physician. * You may shower/bathe daily. MEDICATIONS: For discomfort or pain, you may use Acetaminophen (Tylenol), Ibuprofen (Advil), or Naproxen (Aleve) following the package directions. For constipation you may use Colace following the package directions. BREAST CARE: If you are not breast feeding: * Wear a supportive bra 24 hours a day for one to two weeks. * Avoid stimulating your breasts and nipples as much as possible during the first few weeks after delivery. * When taking a shower, have the warm water hit your back, not breasts. * When your breasts feel full, apply ice packs. Usually three to four times a day helps ease the discomfort. * Take a mild pain medication (Tylenol / Motrin) when you are uncomfortable. If breast feeding: * Use breast milk to lubricate nipples. Lansinoh cream may be used for sore nipples. You do not need to remove cream prior to breast feeding. If using a different brand of cream, check the label for directions regarding removal of cream prior to nursing. * Wear a supportive bra. * If having problems with breasts or breast feeding, call a sr. consultant or your health care provider. EPISIOTOMY CARE: After delivery, if you have an episiotomy (stitches), the following steps will ease discomfort and aid healing. * For the first 24 hours after delivery, place ice packs next to your episiotomy to help reduce swelling. * After the first 24 hour-period, sitz baths, either portable or in the tub, are suggested. A shower with a shower arm sprayed over the episiotomy may be comforting. * Yumiko care should be done after each voiding and bowel movement. Squirt warm water from a plastic bottle over the perineum (region of the body between the anus and urinary opening) and pat dry. * Use Dermoplast to ease discomfort. Shake container. [place] directly over the episiotomy. Place a Tucks on a clean sanitary pad next to your episiotomy. SPECIAL CARE INSTRUCTIONS: When you are discharged from the hospital, it is important for you to follow the instructions listed below: * During the first week at home, you should be able to care for yourself and your baby. In addition, the usual light household activities are encouraged. * Limit your activities to the way you feel. Do not try to clean the house or move furniture. Be sensible. * If you actively engage in sports and have done so up until the time of your delivery, you may resume these activities as soon as you feel able. This may take up to one month or even longer. Use good judgment. * Continue to take your vitamins for at least six weeks after the of your baby. * Your diet need not be limited unless you were on a special diet before your delivery. Breast-feeding mothers need around 2500 calories per day and at least 64-80 ounces of fluid per day (8 to 10 glasses). * You should eat foods from the four major food groups. Crash diets or fad diets are to be avoided. Eating lean meats, fresh fruits and vegetables, low-fat dairy products, high fiber foods and a regular exercise program, will help you get back to your pre- weight without putting your health at risk. * Constipation is sometimes a problem after delivery. Take a mild laxative as needed. If breast feeding, Milk of Magnesia is acceptable to use. You may use a suppository or Fleets enema if no episiotomy. * A daily shower or tub bath is suggested. Be sure to thoroughly and gently dry the perineum. * A bloody vaginal discharge will usually continue until around four weeks post . A small amount of bleeding may continue for as long as six weeks. Vaginal discharge changes from the bright red bleeding after delivery to pink then brownish and finally yellowish-pink before becoming white and disappearing. * Bleeding may increase with activity. Your first period may come in 4-8 weeks. If you are breast feeding, your period may be delayed even longer. * [place] (sex) can begin whenever both you and your partner feel comfortable and do not have any form of genital infection. It is recommended that you wait at least six weeks for internal and external healing to occur. If you have questions, please talk to your health care practitioner. A condom should be used to prevent infection and . * Foreplay, gentle intercourse and lubrication is very important the first several times to prevent pain. A water-based lubricant such as K-Y jelly or Astroglide may be used. * If you have RH negative blood and your baby is RH positive, you will receive RHOGAM by injection prior to discharge. The nurse will give you a card to keep with you that has the date and place that you received RHOGAM after delivery. * During your care, you had a Rubella screen done to check for the presence of rubella antibodies in your blood. If your test was negative, you will receive a Rubella vaccine prior to discharge. This vaccine may cause a fever, soreness at the injection site and flu-like symptoms. If these symptoms persist, notify your health care practitioner. is not advised for one month after a Rubella vaccine. * Verbalizes understanding of car seat law as reviewed with patient nursing. * Car Seat hand-out given and reviewed with patient by nursing. * Shaken baby information reviewed with patient by nursing. Call you doctor if: * Heavy bleeding (saturating several pads an hour) or passing clots the size of your fist. * A fever >101 degrees F (38.3 degrees C) on two occasions four hours apart and /or chills. * Unusual pain in the pelvic or vaginal areas. * "Baby Blues" lasting longer than two weeks. If you have any questions or concerns, call your health care practitioner at . FOLLOW UP VISIT: * Please call the office at to schedule a 6 week examination. It is important you keep this appointment. It is important for you to make arrangements for either yearly or twice yearly check-ups thereafter. Current Hospital Diet Patient's current hospital diet: Regular OB Diet Discharge Diet Recommended Diet: Regular Diet Pending Studies Studies pending at discharge: no Medical Emergencies . Who to Call and When: Medical Emergencies: If at any time you feel your situation is an emergency, please call 911 immediately. . Non-Emergent Contact Non-Emergency issues call your: Primary Care Provider . . "Provider Documentation" section prepared by Yunier Thacker. .
[2017-11-11] MEDS ORDERED: OXYC-57 PO (07:31)
[2017-11-11] MEDS: FERROUS SULFATE 325 MG TAB PO SCH (08:23)
[2017-11-11] MEDS: DOCUSATE SODIUM 100 MG CAP PO SCH (08:23)
[2017-11-11 08:25] VITALS: BP 139/88; PULSE 86; TEMP 36.7; O2SAT 96
[2017-11-11] MEDS: IBUPROFEN 600 MG TAB PO PRN ×2 (11:34→19:30)
[2017-11-11 16:05] VITALS: BP 141/84; PULSE 66; TEMP 37; O2SAT 97
[2017-11-11 19:18] VITALS: BP_DIAS 84; PULSE 66; TEMP 37
[2017-11-11] MEDS: OXYCODONE/ACETAMINOPHEN 5-325 TAB PO PRN (19:30)
[2017-11-11 19:35] VITALS: BP 142/96; PULSE 95; TEMP 36.9; O2SAT 97
== END 2017-11-11 19:45 | disposition home or self-care (01) | DRG 768 ==
LOC: C.OPB 03:01 → C.LD 03:02 → C.OPB 03:51 → C.LD 03:52 → C.OBG 11-10 15:26
PROVIDERS: ADMIT Obstetrics & Gynecology; ATTEND Obstetrics & Gynecology
PROC: 0W3R7ZZ Control Bleeding in Genitourinary Tract, Via Natural or Artificial Opening (ICD-10-PCS; principal; 2017-11-09)
PROC: 10E0XZZ Delivery of Products of Conception, External Approach (ICD-10-PCS; principal; 2017-11-09)
PROC: 0KQM0ZZ Repair Perineum Muscle, Open Approach (ICD-10-PCS; principal; 2017-11-09)
DX: O70.1 Second degree perineal laceration during delivery (principal); O71.7 Obstetric hematoma of pelvis; O99.824 Streptococcus B carrier state complicating childbirth; O09.293 Supervision of pregnancy with other poor reproductive or obstetric history, third trimester; K59.00 Constipation, unspecified; O99.611 Diseases of the digestive system complicating pregnancy, first trimester; O24.410 Gestational diabetes mellitus in pregnancy, diet controlled; Z37.0 Single live birth; Z3A.39 39 weeks gestation of pregnancy